=== PATIENT | female | born 1995 | race Two or more races ===

== ENCOUNTER 2020-02-08 02:08 | Emergency (ER) | payer MEDICAID, OTHER ==
[~2020-02-08] VITALS: Ht 154.9 cm; Wt 88.9 kg
[2020-02-08 04:24] LABS: Urine Amorphous Crystal FEW /hpf (None Seen); Urine Bacteria MOD /hpf (None Seen); Urine Blood Negative /uL (Negative); Urine Mucus FEW (None Seen); Urine Specific Gravity 1.012 (1.001-1.035); Urine WBC 418 /hpf (0 - 5); Urine WBC Clumps PRESENT /hpf (None Seen)
[2020-02-08 10:43] VITALS: BP 131/85
== END 2020-02-08 10:51 | disposition home or self-care (01) ==
LOC: ER 02:08
DX: O23.41 Unspecified infection of urinary tract in pregnancy, first trimester (principal); R30.0 Dysuria; Z3A.01 Less than 8 weeks gestation of pregnancy
CPT/HCPCS: 36415; 76801; 76817; 81001; 84702

== ENCOUNTER 2020-02-19 14:38 | Emergency (ER) | payer MEDICAID ==
[~2020-02-19] VITALS: Ht 154.9 cm; Wt 87.1 kg
[2020-02-19 14:45] VITALS: BP 128/85
[2020-02-19 15:28] LABS: Urine Bacteria NONE SEEN /hpf (None Seen); Urine Blood 1+ /uL (Negative); Urine Mucus FEW (None Seen); Urine Specific Gravity 1.034 (1.001-1.035); Urine WBC 1 /hpf (0 - 5)
== END 2020-02-19 16:26 | disposition home or self-care (01) ==
LOC: ER 14:38
DX: O20.0 Threatened abortion (principal); Z3A.01 Less than 8 weeks gestation of pregnancy
CPT/HCPCS: 36415; 76801; 81001; 84702

== ENCOUNTER 2020-08-30 22:37 | Observation (INO) | payer MEDICAID ==
[~2020-08-30] VITALS: Ht 0 cm
[2020-08-31] MEDS ORDERED: ACETAMINOPHEN 325 MG TAB PO ONE ×2 (00:15)
[2020-08-31 02:14] LABS: Basophils # (auto) 0.1 10 ^3/uL (0-0.2); Eosinophils # (auto) 0.1 10 ^3/uL (0-0.8); Eosinophils % (auto) 0.6 % (0.0-7.0); Mean Corpuscular Hemoglobin 25.7 pg (28.0-32.0)
[2020-08-31 02:16] LABS: Hematocrit 35.9 % (36.0-46.0); Hemoglobin 11.6 g/dL (12.2-16.2); Lymphocytes % (auto) 30.5 % (10.0-50.0); Mean Corpuscular Hgb Conc. 32.3 g/dL (32.0-36.0); Mean Corpuscular Volume 79.6 fL (80.0-100.0); Monocytes # (auto) 0.7 10 ^3/uL (0-1.3); Monocytes % (auto) 7.3 % (0.0-12.0); Neutrophils % (auto) 60.6 % (37.0-80.0); Nucleated Red Blood Cells % 0.2 %; Platelet Count (auto) 250 10^3/uL (140-450); Red Blood Cells 4.51 10^6/uL (4.0-5.20); Red Cell Distribution Width 16.6 % (11.8-14.3); White Blood Cell 9.9 10^3/uL (4.4-10.8)
[2020-08-31 02:30] LABS: INR 0.91 (0.9-1.15); Partial Thromboplastin Time 27.1 sec (23.0-31.2)
[2020-08-31 02:39] LABS: Albumin 2.4 g/dL (3.4-5.0); Calcium 8.1 mg/dL (8.5-10.1); Potassium 4.6 mmol/L (3.5-5.1)
[2020-08-31 02:42] LABS: BUN/Creatinine Ratio 16.9; Bilirubin, Total 0.2 mg/dL (0.2-1.0)
[2020-08-31 02:47] LABS: Urine Bacteria FEW /hpf (None Seen); Urine Blood Negative /uL (Negative); Urine Hyaline Cast FEW /lpf (0 - 2); Urine Mucus FEW (None Seen); Urine Specific Gravity 1.017 (1.001-1.035); Urine WBC 3 /hpf (0 - 5)
[2020-08-31] MEDS ORDERED: LEVO25CA3 PO (04:04)
[2020-08-31] MEDS ORDERED: LEVO25TA6 PO (04:05)
== END 2020-08-31 04:20 | disposition home or self-care (01) ==
LOC: UNDOADMOB 22:37 → LDRP 22:37 → UNDODISOB 08-31 04:20
PROVIDERS: ADMIT Obstetrics & Gynecology; ATTEND Obstetrics & Gynecology
DX: O48.0 Post-term pregnancy (principal); O62.9 Abnormality of forces of labor, unspecified; O99.891 Other specified diseases and conditions complicating pregnancy; R51.9 Headache, unspecified; Z3A.40 40 weeks gestation of pregnancy
CPT/HCPCS: 36415; 59025; 80053; 81001; 81002; 84550; 85025; 85362; 85379; 85610; 85730; G0378

== ENCOUNTER 2021-02-15 23:40 | Inpatient (IN) | payer MEDICAID ==
[~2021-02-15] VITALS: Ht 154.9 cm; Wt 105.9 kg
[~2021-02-15 23:40] MED LIST: LEVO25CA3 PO; LEVO25TA6 PO
[2021-02-16 00:29] LABS: Basophils # (auto) 0.1 10 ^3/uL (0-0.2); Eosinophils # (auto) 0.1 10 ^3/uL (0-0.8); Monocytes # (auto) 0.8 10 ^3/uL (0-1.3); Monocytes % (auto) 6.7 % (0.0-12.0); Neutrophils # (auto) 7.5 10 ^3/uL (1.6-8.6); Nucleated Red Blood Cells % 0.1 %; Red Blood Cells 5.28 10^6/uL (4.0-5.20); Red Cell Distribution Width 17.5 % (11.8-14.3)
[2021-02-16 00:31] LABS: Eosinophils % (auto) 0.9 % (0.0-7.0); Hematocrit 38.7 % (36.0-46.0); Lymphocytes # (auto) 2.9 10 ^3/uL (0.4-5.4); Lymphocytes % (auto) 25.6 % (10.0-50.0); Mean Corpuscular Hemoglobin 24.6 pg (28.0-32.0); Mean Corpuscular Hgb Conc. 33.6 g/dL (32.0-36.0); Mean Corpuscular Volume 73.3 fL (80.0-100.0); Neutrophils % (auto) 65.8 % (37.0-80.0); White Blood Cell 11.4 10^3/uL (4.4-10.8)
[2021-02-16 00:47] LABS: Albumin 3.7 g/dL (3.4-5.0); Potassium 3.9 mmol/L (3.5-5.1)
[2021-02-16 00:49] LABS: BUN/Creatinine Ratio 16.2
[2021-02-16 00:51] LABS: Bilirubin, Total 0.2 mg/dL (0.2-1.0); Total Protein 8.2 g/dL (6.4-8.2)
[2021-02-16] MEDS ORDERED: MORPHINE SULFATE 4 MG/ML SYR/VIAL IV ONE (02:30)
[2021-02-16] MEDS ORDERED: SODIUM CHLORIDE 0.9% 1,000 ML IV ONE (02:30)
[2021-02-16] MEDS ORDERED: ONDANSETRON HCL 4 MG/2 ML VIAL IM ONE (02:30)
[2021-02-16] MEDS ORDERED: IOHEXOL 300 MG/ML 100ML BOTTLE IJ ONE (02:31)
[2021-02-16] MEDS ORDERED: KETOROLAC TROMETH 30 MG/ML 1ML VIAL IV ONE (06:00)
[2021-02-16 08:34] LABS: Urine Bacteria FEW /hpf (None Seen); Urine Blood Negative /uL (Negative); Urine Mucus FEW (None Seen); Urine WBC 1 /hpf (0 - 5)
[2021-02-16 08:38] LABS: Urine Specific Gravity > 1.050 (1.001-1.035)
[2021-02-16] MEDS ORDERED: HYDROcodone-ACET 5/325MG TAB PO PRN (12:15)
[2021-02-16] MEDS ORDERED: MORPHINE SULF INJ 2 MG/ML SYRINGE 1ML IV PRN ×2 (12:15)
[2021-02-16] MEDS ORDERED: ONDANSETRON HCL 4 MG/2 ML VIAL IV PRN (12:15)
[2021-02-16] MEDS ORDERED: NITROGLYCERIN 0.4 MG SL TAB SL PRN (12:15)
[2021-02-16] MEDS ORDERED: ACETAMINOPHEN 325 MG TAB PO PRN (12:15)
[2021-02-16] MEDS: SODIUM CHLORIDE 0.9% 1,000 ML IV SCH ×2 (12:30→19:50)
[2021-02-16] MEDS ORDERED: ALBUAER3 IN (16:06)
[2021-02-16 16:44] VITALS: BP 117/70
[2021-02-16 22:00] VITALS: BP 123/69
[2021-02-17] MEDS: SODIUM CHLORIDE 0.9% 1,000 ML IV SCH ×2 (03:55→12:15)
[2021-02-17 05:00] VITALS: BP 121/66
[2021-02-17 09:00] VITALS: BP 134/69
[2021-02-17 12:34] VITALS: BP 103/67
[2021-02-17 14:33] VITALS: BP 103/67
== END 2021-02-17 15:10 | disposition home or self-care (01) | DRG 251 ==
LOC: ER 23:40 → OVERFLOW 02-16 12:13 → WEST WING 02-16 16:05
PROVIDERS: ADMIT Internal Medicine; ATTEND Internal Medicine
DX: R10.9 Unspecified abdominal pain (principal); E66.01 Morbid (severe) obesity due to excess calories; E78.1 Pure hyperglyceridemia; N83.202 Unspecified ovarian cyst, left side; E03.9 Hypothyroidism, unspecified; J45.909 Unspecified asthma, uncomplicated; Z20.822 Contact with and (suspected) exposure to COVID-19; Z68.41 Body mass index [BMI] 40.0-44.9, adult; Z90.49 Acquired absence of other specified parts of digestive tract
CPT/HCPCS: 36415; 74177; 80053; 81001; 81025; 83605; 83690; 84478; 85025; 86677; 87426; 96361; 96372; 96374; 96375; G0378; J1885; J2405

== ENCOUNTER 2021-05-28 15:55 | Emergency (ER) | payer MEDICAID ==
[~2021-05-28] VITALS: Ht 154.9 cm; Wt 108.9 kg
[~2021-05-28 15:55] MED LIST changes: +ALBUAER3 IN; -LEVO25CA3 PO
[2021-05-28 17:33] LABS: Protein, Urine 8.8 mg/dL (0.0-11.9)
[2021-05-28 17:54] LABS: Basophils # (auto) 0.1 10 ^3/uL (0-0.2); Eosinophils # (auto) 0.1 10 ^3/uL (0-0.8); Mean Corpuscular Volume 76.2 fL (80.0-100.0); Monocytes # (auto) 0.7 10 ^3/uL (0-1.3); Neutrophils # (auto) 5.5 10 ^3/uL (1.6-8.6); Nucleated Red Blood Cells % 0.1 %
[2021-05-28 17:55] LABS: Basophils % (auto) 0.9 % (0.0-2.0); Eosinophils % (auto) 0.8 % (0.0-7.0); Hematocrit 41.3 % (36.0-46.0); Hemoglobin 13.3 g/dL (12.2-16.2); Lymphocytes # (auto) 1.7 10 ^3/uL (0.4-5.4); Mean Corpuscular Hemoglobin 24.6 pg (28.0-32.0); Mean Corpuscular Hgb Conc. 32.3 g/dL (32.0-36.0); Monocytes % (auto) 8.7 % (0.0-12.0); Neutrophils % (auto) 68.6 % (37.0-80.0); Red Blood Cells 5.42 10^6/uL (4.0-5.20); Red Cell Distribution Width 16.9 % (11.8-14.3)
[2021-05-28 18:14] LABS: Albumin 3.2 g/dL (3.4-5.0); Calcium 8.6 mg/dL (8.5-10.1); Magnesium 2.9 mg/dL (1.6-2.6); Potassium 4.2 mmol/L (3.5-5.1)
[2021-05-28 18:17] LABS: BUN/Creatinine Ratio 10.3; Bilirubin, Total 0.1 mg/dL (0.2-1.0); Total Protein 7.5 g/dL (6.4-8.2)
[2021-05-28 18:20] LABS: INR 0.99 (0.9-1.15); Partial Thromboplastin Time 27.7 sec (23.6-33.0)
[2021-05-28] MEDS ORDERED: ACETAMINOPHEN 325 MG TAB PO ONE (18:45)
[2021-05-28] MEDS ORDERED: SODIUM CHLORIDE 0.9% 1,000 ML IV ONE (18:45)
[2021-05-29 01:09] LABS: Urine Bacteria FEW /hpf (None Seen); Urine Blood Negative /uL (Negative); Urine Mucus FEW (None Seen); Urine Specific Gravity 1.029 (1.001-1.035); Urine WBC 3 /hpf (0 - 5)
[2021-05-29 01:30] VITALS: BP 137/88
== END 2021-05-29 01:47 | disposition home or self-care (01) ==
LOC: ER 15:55
DX: O00.01 Abdominal pregnancy with intrauterine pregnancy (principal); I10 Essential (primary) hypertension; J45.909 Unspecified asthma, uncomplicated; Z3A.01 Less than 8 weeks gestation of pregnancy; Z79.899 Other long term (current) drug therapy; Z90.49 Acquired absence of other specified parts of digestive tract; Z98.890 Other specified postprocedural states
CPT/HCPCS: 36415; 76801; 76817; 80053; 81001; 82570; 83615; 83735; 84156; 84702; 85025; 85610; 85730

== ENCOUNTER → 2021-07-03 | Outpatient (CLI) | payer MEDICAID ==
[2021-07-03] VITALS (7 sets, daily range): BP systolic 103–125; BP diastolic 47–77
[~2021-07-03] VITALS: Ht 154.9 cm; Wt 105.2 kg
[~2021-07-03] MED LIST changes: +LIDOCAINE 1% HCL (LOCAL ANESTH.) INJ 20ML MDV ONE; +REGENERON 1200mg/250ml NS 250 ML IV ONE
== END | disposition home or self-care (01) ==
LOC: ER 12:11
PROVIDERS: ATTEND Internal Medicine
DX: O98.511 Other viral diseases complicating pregnancy, first trimester (principal); U07.1 COVID-19; Z3A.12 12 weeks gestation of pregnancy
CPT/HCPCS: J7050; M0243; Q0244; J2001

== ENCOUNTER 2021-07-29 18:19 | Emergency (ER) | payer MEDICAID ==
[~2021-07-29] VITALS: Ht 154.9 cm; Wt 103.4 kg
[~2021-07-29 18:19] MED LIST changes: -LIDOCAINE 1% HCL (LOCAL ANESTH.) INJ 20ML MDV ONE; -REGENERON 1200mg/250ml NS 250 ML IV ONE
[2021-07-29 18:24] VITALS: BP 132/94
[2021-07-29 19:02] LABS: Urine Bacteria FEW /hpf (None Seen); Urine Blood Negative /uL (Negative); Urine Mucus FEW (None Seen); Urine Specific Gravity 1.021 (1.001-1.035); Urine WBC 17 /hpf (0 - 5)
== END 2021-07-30 06:56 | disposition left against medical advice (07) ==
LOC: ER 18:19
DX: O26.892 Other specified pregnancy related conditions, second trimester (principal); R42 Dizziness and giddiness; Z53.21 Procedure and treatment not carried out due to patient leaving prior to being seen by health care provider; Z3A.16 16 weeks gestation of pregnancy
CPT/HCPCS: 81001; 81025

== ENCOUNTER → 2024-04-07 | Outpatient (CLI) | payer MEDICAID ==
[2024-04-07 14:43] LABS: 24 Hr. Total Protein, Urine 159.5 mg/24 Hr (<149.1)
== END | disposition home or self-care (01) ==
LOC: LAB 13:58
PROVIDERS: ATTEND Obstetrics & Gynecology
DX: R82.998 Other abnormal findings in urine (principal)
CPT/HCPCS: 84156

== ENCOUNTER 2024-04-16 16:16 | Observation (INO) | payer MEDICAID ==
[2024-04-16 16:58] LABS: Basophils # (auto) 0.1 10 ^3/uL (0-0.2); Basophils % (auto) 0.9 % (0.0-2.0); Eosinophils # (auto) 0.1 10 ^3/uL (0-0.8); Eosinophils % (auto) 0.8 % (0.0-7.0); Hematocrit 33.7 % (36.0-46.0); Hemoglobin 10.7 g/dL (12.2-16.2); Lymphocytes # (auto) 1.4 10 ^3/uL (0.4-5.4); Lymphocytes % (auto) 16.2 % (10.0-50.0); Mean Corpuscular Hemoglobin 22.8 pg (28.0-32.0); Mean Corpuscular Hgb Conc. 31.7 g/dL (32.0-36.0); Mean Corpuscular Volume 71.8 fL (80.0-100.0); Monocytes # (auto) 0.7 10 ^3/uL (0-1.3); Monocytes % (auto) 7.4 % (0.0-12.0); Neutrophils # (auto) 6.6 10 ^3/uL (1.6-8.6); Neutrophils % (auto) 74.7 % (37.0-80.0); Nucleated Red Blood Cells % 0.1 %; Platelet Count (auto) 260 10^3/uL (140-450); Red Blood Cells 4.69 10^6/uL (4.0-5.20); Red Cell Distribution Width 18.5 % (11.8-14.3); White Blood Cell 8.9 10^3/uL (4.4-10.8)
[2024-04-16 17:13] LABS: Alanine Aminotransferase 11 U/L (7-40); Albumin 3.9 g/dL (3.2-4.8); Alkaline Phosphatase 157 U/L (46-116); Anion Gap 6 (5-15); Aspartate Aminotransferase 12 U/L (13-40); BUN/Creatinine Ratio 13.4 (10.0-20.0); Blood Urea Nitrogen 9 mg/dL (9-23); Calcium 9.1 mg/dL (8.7-10.4); Carbon Dioxide 23 mmol/L (20-31); Chloride 108 mmol/L (98-107); Glucose 95 mg/dL (74-106); Sodium 137 mmol/L (136-145); Uric Acid 5.7 mg/dL (3.1-7.8)
[2024-04-16 17:14] LABS: Bilirubin, Total 0.4 mg/dL (0.2-1.0); Total Protein 6.9 g/dL (5.7-8.2)
[2024-04-16 17:17] LABS: INR 1.03 (0.9-1.15); Partial Thromboplastin Time 26.1 SEC (24.5-34.5); Prothrombin Time 10.9 sec (9.3-11.8)
[2024-04-16 17:27] LABS: Urine Bacteria FEW /hpf (None Seen); Urine Blood Negative /uL (Negative); Urine Clarity Turbid (Clear); Urine Color Yellow (Yellow); Urine Mucus FEW (None Seen); Urine Protein, UAD TRACE (Negative); Urine Specific Gravity 1.014 (1.001-1.035); Urine Urobilinogen Normal (Negative); Urine WBC 4 /hpf (0 - 5)
[2024-04-16 17:38] LABS: Protein, Urine 33.3 mg/dL (1-14)
[2024-04-16 17:39] LABS: Amphetamine Screen, Urine Neg (NEGATIVE); Barbiturate Scree,Urine Neg (NEGATIVE); Benzodiazephine Screen, Urine Neg (NEGATIVE); Cocaine Screen, Urine Neg (NEGATIVE); Opiate Scree,Urine Neg (NEGATIVE)
[2024-04-16 17:40] LABS: Cannabinoid Screen, Urine Neg (NEGATIVE); Creatinine, Urine 116.16 mg/dL (30.0-125.0); Phencyclidine Screen, Urine Neg (NEGATIVE); Urine Protein/Creatinine Ratio 0.29
[2024-04-16] MEDS ORDERED: ASPI1TAB20 PO (18:22)
[2024-04-16] MEDS ORDERED: PREN1TAB71 OR (18:22)
== END 2024-04-16 20:03 | disposition home or self-care (01) ==
LOC: LDRP 16:16
PROVIDERS: ADMIT Obstetrics & Gynecology; ATTEND Obstetrics & Gynecology
DX: O13.3 Gestational [pregnancy-induced] hypertension without significant proteinuria, third trimester (principal); O60.03 Preterm labor without delivery, third trimester; O99.333 Smoking (tobacco) complicating pregnancy, third trimester; F17.210 Nicotine dependence, cigarettes, uncomplicated; Z3A.31 31 weeks gestation of pregnancy; Z79.899 Other long term (current) drug therapy
CPT/HCPCS: 36415; 59025; 76805; 80053; 80307; 81001; 81002; 82570; 84156; 84550; 85025; 85610; 85730; 94760; G0378

== ENCOUNTER 2024-04-20 13:58 | Observation (INO) | payer MEDICAID ==
[~2024-04-20 13:58] MED LIST changes: +ASPI1TAB20 PO; +PREN1TAB71 OR
== END 2024-04-20 17:31 | disposition home or self-care (01) ==
LOC: LDRP 13:58
PROVIDERS: ADMIT Obstetrics & Gynecology; ATTEND Obstetrics & Gynecology
DX: O13.3 Gestational [pregnancy-induced] hypertension without significant proteinuria, third trimester (principal); Z3A.33 33 weeks gestation of pregnancy; Z79.899 Other long term (current) drug therapy
CPT/HCPCS: 59025; 76818; 81002; G0378

== ENCOUNTER 2024-04-27 06:53 | Observation (INO) | payer MEDICAID ==
[2024-04-27 16:00] LABS: Urine Bacteria None Seen /hpf (None Seen)
[2024-04-27 16:12] LABS: INR 1.01 (0.9-1.15); Partial Thromboplastin Time 25.8 SEC (24.5-34.5); Prothrombin Time 10.7 sec (9.3-11.8)
[2024-04-27 16:18] LABS: Alanine Aminotransferase 10 U/L (7-40); Albumin 3.7 g/dL (3.2-4.8); Alkaline Phosphatase 146 U/L (46-116); Anion Gap 11 (5-15); Aspartate Aminotransferase 11 U/L (13-40); BUN/Creatinine Ratio 12.7 (10.0-20.0); Bilirubin, Total 0.4 mg/dL (0.2-1.0); Blood Urea Nitrogen 7 mg/dL (9-23); Calcium 8.6 mg/dL (8.7-10.4); Carbon Dioxide 20 mmol/L (20-31); Chloride 105 mmol/L (98-107); Glucose 103 mg/dL (74-106); Potassium 3.9 mmol/L (3.5-5.1); Sodium 136 mmol/L (136-145); Total Protein 6.5 g/dL (5.7-8.2); Uric Acid 5.2 mg/dL (3.1-7.8)
[2024-04-27 16:20] LABS: Urine Blood Negative /uL (Negative); Urine Color Yellow (Yellow); Urine Mucus FEW (None Seen); Urine Protein, UAD 1+ (Negative); Urine Specific Gravity 1.022 (1.001-1.035); Urine Urobilinogen 2 mg/dL (Negative); Urine WBC 1 /hpf (0 - 5); Urine pH 7.5 (5.0-9.0)
[2024-04-27 16:24] LABS: Protein, Urine 66.2 mg/dL (1-14); Urine Clarity HAZY (Clear)
[2024-04-27 16:35] LABS: Creatinine, Urine 271.42 mg/dL (30.0-125.0); Urine Protein/Creatinine Ratio 0.24
[2024-04-27 17:19] LABS: Basophils # (auto) 0 10 ^3/uL (0-0.2); Basophils % (auto) 0.3 % (0.0-2.0); Eosinophils # (auto) 0 10 ^3/uL (0-0.8); Eosinophils % (auto) 0.4 % (0.0-7.0); Hemoglobin 10.1 g/dL (12.2-16.2); Lymphocytes # (auto) 1.3 10 ^3/uL (0.4-5.4); Monocytes # (auto) 0.6 10 ^3/uL (0-1.3); Neutrophils # (auto) 5.5 10 ^3/uL (1.6-8.6); White Blood Cell 7.4 10^3/uL (4.4-10.8)
[2024-04-27 17:21] LABS: Hematocrit 32.3 % (36.0-46.0); Lymphocytes % (auto) 17.5 % (10.0-50.0); Mean Corpuscular Hemoglobin 22.3 pg (28.0-32.0); Mean Corpuscular Hgb Conc. 31.4 g/dL (32.0-36.0); Monocytes % (auto) 7.9 % (0.0-12.0); Neutrophils % (auto) 73.9 % (37.0-80.0); Platelet Count (auto) 227 10^3/uL (140-450); Red Blood Cells 4.54 10^6/uL (4.0-5.20); Red Cell Distribution Width 19.3 % (11.8-14.3)
== END 2024-04-27 17:21 | disposition home or self-care (01) ==
LOC: LDRP 14:21
PROVIDERS: ADMIT Obstetrics & Gynecology; ATTEND Obstetrics & Gynecology
DX: O26.893 Other specified pregnancy related conditions, third trimester (principal); R51.9 Headache, unspecified; H53.8 Other visual disturbances; Z3A.32 32 weeks gestation of pregnancy; Z79.899 Other long term (current) drug therapy; Z98.890 Other specified postprocedural states
CPT/HCPCS: 36415; 59025; 76818; 80053; 81001; 81002; 82570; 84156; 84550; 85025; 85610; 85730; 94760; G0378

== ENCOUNTER 2024-05-04 12:53 | Observation (INO) | payer MEDICAID | END 2024-05-04 14:48 | disposition home or self-care (01) | LOC: LDRP 12:53 → UNDOADMOB 12:53 → LDRP 13:05 | PROVIDERS: ADMIT Obstetrics & Gynecology; ATTEND Obstetrics & Gynecology | DX: O26.893 Other specified pregnancy related conditions, third trimester (principal); R51.9 Headache, unspecified; R11.0 Nausea; O14.93 Unspecified pre-eclampsia, third trimester; O99.333 Smoking (tobacco) complicating pregnancy, third trimester; F17.210 Nicotine dependence, cigarettes, uncomplicated; Z3A.34 34 weeks gestation of pregnancy | CPT/HCPCS: 59025; 76818; 81002; 94760; G0378 ==

== ENCOUNTER → 2024-05-04 | Outpatient (CLI) | payer MEDICAID ==
[2024-05-04 15:33] LABS: Protein, Urine 20.8 mg/dL (1-14)
[2024-05-04 15:37] LABS: 24 Hr. Total Protein, Urine 187.2 mg/24 Hr (<149.1)
== END | disposition home or self-care (01) ==
LOC: LAB 12:49
PROVIDERS: ATTEND Obstetrics & Gynecology
DX: Z34.80 Encounter for supervision of other normal pregnancy, unspecified trimester (principal)
CPT/HCPCS: 84156

== ENCOUNTER 2024-05-11 07:25 | Observation (INO) | payer MEDICAID | END 2024-05-11 13:28 | disposition home or self-care (01) | LOC: UNDOADMOB 12:05 → LDRP 12:05 | PROVIDERS: ADMIT Obstetrics & Gynecology; ATTEND Obstetrics & Gynecology | DX: O14.93 Unspecified pre-eclampsia, third trimester (principal); O99.513 Diseases of the respiratory system complicating pregnancy, third trimester; J45.909 Unspecified asthma, uncomplicated; E03.9 Hypothyroidism, unspecified; Z3A.35 35 weeks gestation of pregnancy; Z79.899 Other long term (current) drug therapy; Z98.890 Other specified postprocedural states | CPT/HCPCS: 59025; 76818; 81002; 94760; G0378 ==

== ENCOUNTER → 2024-05-12 | Outpatient (CLI) | payer MEDICAID ==
[2024-05-12 12:06] LABS: Basophils # (auto) 0.1 10 ^3/uL (0-0.2); Eosinophils # (auto) 0.1 10 ^3/uL (0-0.8); Hematocrit 32.4 % (36.0-46.0); Lymphocytes # (auto) 1.6 10 ^3/uL (0.4-5.4); Neutrophils # (auto) 5.3 10 ^3/uL (1.6-8.6)
[2024-05-12 12:08] LABS: Basophils % (auto) 1.1 % (0.0-2.0); Eosinophils % (auto) 0.9 % (0.0-7.0); Hemoglobin 10.5 g/dL (12.2-16.2); Lymphocytes % (auto) 20.9 % (10.0-50.0); Mean Corpuscular Hemoglobin 22.4 pg (28.0-32.0); Mean Corpuscular Hgb Conc. 32.3 g/dL (32.0-36.0); Mean Corpuscular Volume 69.3 fL (80.0-100.0); Monocytes # (auto) 0.5 10 ^3/uL (0-1.3); Neutrophils % (auto) 70.1 % (37.0-80.0); Nucleated Red Blood Cells % 0.1 %; Platelet Count (auto) 228 10^3/uL (140-450); Red Blood Cells 4.68 10^6/uL (4.0-5.20); Red Cell Distribution Width 19.2 % (11.8-14.3); White Blood Cell 7.5 10^3/uL (4.4-10.8)
[2024-05-12 13:30] LABS: Ovalocytes FEW; Platelet Estimate Adequate; Tear Drop Cells FEW
[2024-05-12 13:31] LABS: Hypochromia Moderate
== END | disposition home or self-care (01) ==
LOC: LAB 11:42
PROVIDERS: ATTEND Obstetrics & Gynecology
DX: Z34.80 Encounter for supervision of other normal pregnancy, unspecified trimester (principal)
CPT/HCPCS: 36415; 82947; 83036; 84439; 84443; 85025

== ENCOUNTER 2024-05-18 04:38 | Observation (INO) | payer MEDICAID ==
[~2024-05-18] VITALS: Ht 162.6 cm; Wt 113.4 kg
[2024-05-20] MEDS: TERBUTALINE SULFATE 1 MG/ML 1ML VIAL SC SCH (16:49)
== END 2024-05-20 17:53 | disposition home or self-care (01) ==
LOC: LDRP 05-20 15:20 → UNDOADMOB 05-20 15:20 → LDRP 05-20 15:36 → UNDODISOB 05-20 17:53
PROVIDERS: ADMIT Obstetrics & Gynecology; ATTEND Obstetrics & Gynecology
DX: O60.03 Preterm labor without delivery, third trimester (principal); O26.853 Spotting complicating pregnancy, third trimester; Z3A.36 36 weeks gestation of pregnancy; Z98.891 History of uterine scar from previous surgery; Z79.899 Other long term (current) drug therapy
CPT/HCPCS: 59025; 76815; 76817; 81002; 94760; 96372; G0378; J3105

== ENCOUNTER 2024-05-22 05:33 | Inpatient (IN) | payer MEDICAID ==
[2024-05-22] VITALS (20 sets, daily range): BP systolic 102–132; BP diastolic 51–79; PULSE 67–90; RESP 16–20; TEMP 98.2–98.5; O2SAT 95–100
[~2024-05-22] VITALS: Ht 154.9 cm; Wt 112.5 kg
[2024-05-22] MEDS: LACTATED RINGER'S 1,000 ML IV ONE (06:00)
[2024-05-22] MEDS ORDERED: LACTATED RINGER'S 1,000 ML IV SCH (06:00)
[2024-05-22] MEDS: METOCLOPRAMIDE HCL 5MG/ml INJ 2ml VIAL IV ONE (06:00)
[2024-05-22 06:29] LABS: Eosinophils # (auto) 0 10 ^3/uL (0-0.8); Eosinophils % (auto) 0.4 % (0.0-7.0); Mean Corpuscular Hgb Conc. 30.8 g/dL (32.0-36.0); Neutrophils # (auto) 5.2 10 ^3/uL (1.6-8.6); White Blood Cell 7.9 10^3/uL (4.4-10.8)
[2024-05-22 06:31] LABS: Basophils # (auto) 0 10 ^3/uL (0-0.2); Basophils % (auto) 0.4 % (0.0-2.0); Hematocrit 32.7 % (36.0-46.0); Hemoglobin 10.1 g/dL (12.2-16.2); Lymphocytes # (auto) 2.2 10 ^3/uL (0.4-5.4); Lymphocytes % (auto) 27.1 % (10.0-50.0); Mean Corpuscular Hemoglobin 21.3 pg (28.0-32.0); Mean Corpuscular Volume 69.2 fL (80.0-100.0); Monocytes # (auto) 0.5 10 ^3/uL (0-1.3); Monocytes % (auto) 6.3 % (0.0-12.0); Neutrophils % (auto) 65.8 % (37.0-80.0); Nucleated Red Blood Cells % 0.2 %; Platelet Count (auto) 239 10^3/uL (140-450); Red Blood Cells 4.72 10^6/uL (4.0-5.20); Red Cell Distribution Width 20.3 % (11.8-14.3)
[2024-05-22] MEDS: SODIUM CITR/CITRIC ACID ORAL SOLN 30 ML PO ONE (06:33)
[2024-05-22] MEDS: ceFAZolin 2 GM/D5W50ml 50 ML IV ONE (06:34)
[2024-05-22 06:35] LABS: Urine Bacteria FEW /hpf (None Seen); Urine Blood 2+ /uL (Negative); Urine Clarity Turbid (Clear); Urine Color Colorless (Yellow); Urine Mucus FEW (None Seen); Urine Protein, UAD 1+ (Negative); Urine Specific Gravity 1.015 (1.001-1.035); Urine Urobilinogen Normal (Negative); Urine WBC 19 /hpf (0 - 5)
[2024-05-22 06:44] LABS: Amphetamine Screen, Urine Neg (NEGATIVE); Barbiturate Scree,Urine Neg (NEGATIVE); Benzodiazephine Screen, Urine Neg (NEGATIVE)
[2024-05-22 06:45] LABS: INR 0.99 (0.9-1.15); Partial Thromboplastin Time 25.4 SEC (24.5-34.5); Prothrombin Time 10.5 sec (9.3-11.8)
[2024-05-22 06:45] LABS: Cannabinoid Screen, Urine Neg (NEGATIVE); Cocaine Screen, Urine Neg (NEGATIVE); Opiate Scree,Urine Neg (NEGATIVE); Phencyclidine Screen, Urine Neg (NEGATIVE)
[2024-05-22 06:47] LABS: Alanine Aminotransferase < 9 U/L (7-40); Albumin 3.6 g/dL (3.2-4.8); Alkaline Phosphatase 157 U/L (46-116); Anion Gap 10 (5-15); Aspartate Aminotransferase 12 U/L (13-40); BUN/Creatinine Ratio 16.4 (10.0-20.0); Bilirubin, Total 0.4 mg/dL (0.2-1.0); Blood Urea Nitrogen 10 mg/dL (9-23); Calcium 8.7 mg/dL (8.7-10.4); Carbon Dioxide 19 mmol/L (20-31); Chloride 108 mmol/L (98-107); Glucose 91 mg/dL (74-106); Sodium 137 mmol/L (136-145); Total Protein 6.5 g/dL (5.7-8.2)
[2024-05-22 06:52] LABS: Anisocytosis Slight; Platelet Estimate Adequate
--- NOTE | 2024-05-22 06:52 | DVHHP2 ---
OB CC & HPI Date Date of Admission: May 22, 2024 Patient Identification: : 4 Para: 3 EDC: Jun 14, 2024 EGA: 36wks Chief Complaints: Reason for admission: active labor, rupture of membranes Indication for : desires repeat Admission Nurse Assessment Rev: No History of Present Complaints pt is admitted in labor with prom ,no vag bleeding and she is requesting rcs with btl Past Medical History Cardiac: No pertinent Hx Pulmonary: No pertinent Hx Central Nervous System: No pertinent Hx GI: No pertinent Hx Hemotology/Oncology: No pertinent Hx Hepatobiliary: No pertinent Hx Psychiatric: No pertinent Hx Musculoskeletal: No pertinent Hx Rheumotologic: No pertinent Hx Infectious Disease: No peritnent Hx ENT: No pertinent Hx Renal/: No pertinent Hx Endocrine: No pertinent Hx Dermatology: No pertinent Hx Past Surgical History: OB History OB History Care: Good Care Ultrasounds: Normal mid trimester US Obstetrical Complications: None Medical Complications: None Allergies: Coded Allergies: NO KNOWN ALLERGIES (Unverified , 02/08/20) Home Meds Reported Medications Aspirin (Aspir-81) 81 Mg Tab, 1 TAB PO DAILY, #30 TAB 5 Refills 04/16/24 Vit W/ Ferrous Fumara (PNV PLUS MULTIVI) Plus Tab, 1 OR, TAB 04/16/24 Albuterol Sulfate (VENTOLIN MDI) 90 Mcg Ih, 90 MCG IN 2 PUFFS PO Q4HR PRN SOB 02/16/21 Levothyroxine Sodium (Levothyroxine Sodium) 25 Mcg Tab, 25 MCG PO QAM, MCG 08/31/20 Current Medications Current Medications Medications (Trade) Dose Ordered Sig/Romain Route PRN Reason Start Time Stop Time Status Last Admin Lactated Ringer's 1,000 ml @ 125 mls/hr Q8H IV 05/22/24 06:00 Family & Social History Family/Social History Blood Type: Unknown Rubella: unknown RPR/VDRL: Negative GBS Status: Negative HBsAG: Negative Review of Systems Constitutional: No symptom reported Ears, Nose, & Throat: No symptom reported Eyes: No symptom reported Pulmonary/Respiratory: No symptom reported Cardiovascular: No symptom reported Gastrointestinal: No symptom reported Genitourinary: No symptom reported Musculoskeletal: No symptom reported Skin: No symptom reported Psychiatric: No symptom reported Endocrine: No symptom reported Hemotologic/Lymphatic: No symptom reported OB Admission Exam Physical Exam HEENT: TMs Normal, Fontanelles Normal, Nasal Mucosa Normal, Eyes non-injected, Oropharynx Normal, PERRLA, Moist Membranes, EOMI Heart: Rhythm Normal Lungs: Clear Abdomen: Non tender Extremities: Normal Reflexes: Normal Cervical Dilatation: 2cm Effacement: 50% Station: -3 Membranes: Ruptured Amniotic Fluid: Clear Heart Rate: 130's Accelerations: Accelerations Present Decelerations: No Decelerations Short Term Variability: Present Residential Variability: Average (6-25) Contractions on Admission: < 5 Minutes Apart Intensity: Moderate OB Plan Plan Admitting Diagnosis: Repeat Section with Bilateral Tubal Ligation iup at 36wks with prom morbid obesity Plan: Section Other Plan: informed consent obtained,rcs with btl via filschie clips was informed to pt.risks and complication of cs d/w pt.failure rate with btl d/w pt.risk of dvt,pe,infxn,blood loss,bleeding and risk of anesth d/w pt.all questions answered pt lanette understands wishes to proceed with procedure FOX ROCHA DO May 22, 2024 06:52
[2024-05-22] MEDS ORDERED: MORPHINE SULF PF 5 MG/10 ML VIAL ONE (07:43)
[2024-05-22] MEDS ORDERED: fentaNYL CITRATE 100 MCG/2 ML VL ONE (07:43)
[2024-05-22] MEDS ORDERED: ePHEDrine SULFATE 50 MG/ML AMP ONE (07:44)
[2024-05-22] MEDS ORDERED: GLYCOPYRROLATE 0.2 MG/ML 1ML VIAL ONE (07:44)
[2024-05-22] MEDS ORDERED: PHENYLEPHRINE HCL 10 MG/ML VL ONE (07:44)
[2024-05-22] MEDS ORDERED: oxyTOCIN 10 UNIT/ML 10ML VIAL ONE (07:44)
[2024-05-22] MEDS ORDERED: ONDANSETRON HCL 4 MG/2 ML VIAL ONE (07:44)
--- NOTE | 2024-05-22 08:59 | DVHOP2 ---
Operative Report DATE OF OPERATION: 05/22/24 PREOPERATIVE DIAGNOSES: 1. pre- Term , desires repeat section. 2. Desires bilateral tubal ligation 3.morbid obesity POSTOPERATIVE DIAGNOSES: 1. pre Term , desires repeat section. 2. Desires bilateral tubal ligation 3.morbid obesity PROCEDURES: Repeat section with bilateral tubal ligation via Filschie Clips SURGEON: Fox Connell D.O./caitlyn ANESTHESIOLOGIST: Dr. eason TYPE OF ANESTHESIA : spinal ESTIMATED BLOOD LOSS: 800 mL CONSENT: The patient was informed of the risks and benefits of the procedure. These include but are not limited to , complications of anesthesia, po stoperative infection, incomplete relief of symptoms, recurrence of symptoms, damage to blood vessels, nerves and tendons, deep venous thrombosis, pulmonary embolism and possible need for repeat surgery in the future. Surgery was opted. FINDINGS: Baby [b] with apgars [8] and [9]. Grossly normal appearing tubes and ovaries. TISSUE TO PATHOLOGY: Placenta. PROCEDURE IN DETAIL: The patient was taken to the operating room where she was placed under spinal anesthesia. She was then prepped and draped in the usual sterile manner in supine position with a leftward tilt. A Pfannenstiel skin incision was then made 2 cm above the symphysis pubis. This incision was carried to the underlying layer of fascia. The fascia was nicked in the midline and the incision was extended laterally. The superior aspect of the fascial incision was grasped and elevated. Underlying rectus muscle was dissected off bluntly. The same procedure was done to the inferior aspect of the fascial incision. The rectus muscles were then in the midline. Peritoneum was identified and entered. Peritoneal incision was extended superiorly and inferiorly with good visualization of the bladder. Bladder blade was inserted. Vesicouterine peritoneum was identified and entered. Lower uterine segment was incised in a transverse fashion. The infant was delivered from vertex presentation. The infant was baby [b] with Apgars of [8] and [9]. Placenta was then removed manually. Uterus was exteriorized and cleared off all clots and debris. Uterine incision was repaired using 0 Vicryl in a double-layered fashion. No bleeding was noted. Bilateral tubal ligation was then performed using [place]. Placed in the ampullary region and identifying the fimbria distally. The isthmic portion of the right tube was clipped using Filschie Clip. The same procedure was done on the opposite side. No bleeding was noted. Peritoneum was closed using 0 Vicryl, fascia was closed using 0 Maxon, and skin was closed using mehdi. Estimated blood loss was noted to be 500 mL. The patient tolerated the procedure well. She was taken to the recovery room in stable condition. FOX CONNELL DO May 22, 2024 08:59
--- NOTE | 2024-05-22 09:01 | POSTOP ---
Post-Operative Note Post-Operative Note Preop Diagnosis iup at 36wks with prom in labor,desire srcs with btl morbid obesity Postop Diagnosis: same Operation performed same Specimen baby b0y, 8-9 Anesthesia: Regional Anesthesiologist: yumi Blood Loss(fluid mgmt) 800ml Surgeon Fox Connell Pocket Operator caitlyn Implant filschie Complications & Mgmt none Date 05/22/24 Time 08:59 FOX CONNELL DO May 22, 2024 09:01
[2024-05-22] MEDS ORDERED: HYDR-4072 PO (09:04)
[2024-05-22] MEDS ORDERED: IBUP-1456 PO (09:04)
[2024-05-22] MEDS ORDERED: DOCU-94 PO (09:04)
[2024-05-22] MEDS ORDERED: MEPERIDINE HCL (25 MG/ML) 1ML VIAL ONE (09:14)
[2024-05-22] MEDS ORDERED: ONDANSETRON HCL 4 MG/2 ML VIAL IV PRN (09:15)
[2024-05-22] MEDS: GUM (CHEWING) 1 GUM CHEW CHEW ONE (09:15)
[2024-05-22] MEDS: LACT. RINGERS/OXYTOCIN 20UNITS 1,000 ML IV ONE (09:27)
[2024-05-22] MEDS ORDERED: DexAMETHasone SOD PHOS 10MG/1ML VIAL INJ IV PRN (09:45)
[2024-05-22] MEDS ORDERED: NALOXONE HCL 0.4 MG/ML VIAL IV PRN (09:45)
[2024-05-22] MEDS ORDERED: ePHEDrine SULFATE 50 MG/ML AMP IV PRN (09:45)
[2024-05-22] MEDS: ACETAMINOPHEN IV 1000 MG/100ML (10MG/ML) IV PRN (12:15)
[2024-05-22] MEDS: HYDROmorphone HCL 2 MG/ML VL/or syr IV ONE (13:53)
[2024-05-22] MEDS ORDERED: ceFAZolin 1GM/50ML 50 ML IV SCH (14:30)
[2024-05-22] MEDS: diphenhdrAMINE HCL 50 MG/1 ML VL IV PRN (15:48)
[2024-05-22] MEDS: ceFAZolin 1GM/50ML 50 ML IV SCH (16:02)
[2024-05-22 21:14] LABS: Basophils # (auto) 0 10 ^3/uL (0-0.2); Eosinophils # (auto) 0 10 ^3/uL (0-0.8); Monocytes # (auto) 0.7 10 ^3/uL (0-1.3); Neutrophils # (auto) 6.7 10 ^3/uL (1.6-8.6); Nucleated Red Blood Cells % 0.1 %; Red Cell Distribution Width 19.4 % (11.8-14.3)
[2024-05-22 21:16] LABS: Basophils % (auto) 0.3 % (0.0-2.0); Eosinophils % (auto) 0.5 % (0.0-7.0); Hematocrit 26.6 % (36.0-46.0); Hemoglobin 8.7 g/dL (12.2-16.2); Lymphocytes # (auto) 1.9 10 ^3/uL (0.4-5.4); Lymphocytes % (auto) 20.1 % (10.0-50.0); Mean Corpuscular Hemoglobin 22.5 pg (28.0-32.0); Mean Corpuscular Hgb Conc. 32.6 g/dL (32.0-36.0); Mean Corpuscular Volume 69.2 fL (80.0-100.0); Monocytes % (auto) 7.5 % (0.0-12.0); Neutrophils % (auto) 71.6 % (37.0-80.0); Platelet Count (auto) 195 10^3/uL (140-450); Red Blood Cells 3.84 10^6/uL (4.0-5.20); White Blood Cell 9.4 10^3/uL (4.4-10.8)
[2024-05-22] MEDS: FAMOTIDINE (10MG/ML) 2ML VL IV SCH (22:00)
[2024-05-23] VITALS (15 sets, daily range): BP systolic 107–139; BP diastolic 0–85; PULSE 80–109; RESP 16–17; TEMP 97.7–98.4; O2SAT 95–99
[2024-05-23 06:07] LABS: RPR Non Reactive (Non Reactive)
[2024-05-23 06:26] LABS: Eosinophils # (auto) 0.1 10 ^3/uL (0-0.8); Hemoglobin 8.3 g/dL (12.2-16.2)
[2024-05-23 06:28] LABS: Basophils # (auto) 0 10 ^3/uL (0-0.2); Basophils % (auto) 0.4 % (0.0-2.0); Eosinophils % (auto) 0.5 % (0.0-7.0); Lymphocytes # (auto) 1.1 10 ^3/uL (0.4-5.4); Lymphocytes % (auto) 10.9 % (10.0-50.0); Mean Corpuscular Hemoglobin 22.1 pg (28.0-32.0); Mean Corpuscular Volume 69.1 fL (80.0-100.0); Monocytes # (auto) 0.8 10 ^3/uL (0-1.3); Monocytes % (auto) 7.8 % (0.0-12.0); Neutrophils % (auto) 80.4 % (37.0-80.0); Nucleated Red Blood Cells % 0.1 %; Platelet Count (auto) 185 10^3/uL (140-450); Red Blood Cells 3.77 10^6/uL (4.0-5.20); Red Cell Distribution Width 19.4 % (11.8-14.3)
[2024-05-23] MEDS: KETOROLAC TROMETH 30 MG/ML 1ML VIAL IV PRN (07:57)
[2024-05-23 08:14] LABS: Hypochromia Moderate; Platelet Estimate Adequate
--- NOTE | 2024-05-23 08:21 | DVHPN2 ---
Chief Complaints Patient reports: No new complaints Nursing reports: No new complaints Objective Vitals Vital Signs Date Time Temp Pulse Resp B/P (MAP) Pulse Ox O2 Delivery O2 Flow Rate FiO2 05/23/24 04:30 87 95 05/23/24 03:00 98.3 16 139/76 (97) 98.3 05/22/24 19:00 Room Air 05/22/24 10:11 0.0 05/22/24 09:52 100 Medications Current Medications Medications (Trade) Dose Ordered Sig/Romain Route PRN Reason Start Time Stop Time Status Last Admin Cefazolin Sodium 50 ml @ 100 mls/hr Q8H IV 05/22/24 16:00 05/23/24 08:29 05/22/24 23:58 Diphenhydramine HCl (Benadryl Injection) 25 mg Q4HP PRN IV FOR ITCHING 05/22/24 09:45 05/22/24 15:48 Famotidine (Pepcid Injection) 20 mg Q12HR IV 05/22/24 22:00 Ketorolac Tromethamine (Toradol Injection) 30 mg Q6HP PRN IV MODERATE PAIN (4-6 PAIN SCALE) 05/22/24 09:45 05/27/24 09:44 Levothyroxine Sodium (Synthroid Tablet) 50 mcg QAM@0600 PO 05/23/24 12:00 Ondansetron HCl (Zofran) 4 mg Q4HP PRN IV NAUSEA / VOMITING 05/22/24 09:15 General: Normal Neck: Normal Lungs: Normal Cardiovascular: Normal Abdominal: Soft Extremities: Normal Studies Laboratory Tests 05/23/24 05:59 05/22/24 06:08 Test 05/22/24 06:08 Range/Units Serum Glucose 91 74-106 mg/dL Ass/Plan Assessment S/P RSC WITH BTL Plan SUPPORTIVE CARE FOX ROCHA DO May 23, 2024 08:21
[2024-05-23] MEDS ORDERED: CEPH500T PO (08:22)
[2024-05-23] MEDS ORDERED: BISACODYL 10 MG RECT SUPP PR PRN (08:30)
[2024-05-23] MEDS ORDERED: HYDROcodone-ACET 5/325MG TAB PO PRN (08:30)
[2024-05-23] MEDS: IBUPROFEN 800 MG TAB PO PRN (09:09)
[2024-05-23] MEDS: CEPHALEXIN 250 MG CAP PO SCH ×2 (09:09→14:21)
[2024-05-23] MEDS: HYDROcodone-ACET 5/325MG TAB PO PRN (09:10)
[2024-05-23] MEDS: DOCUSATE CALCIUM 240 MG CAP PO SCH (09:20)
[2024-05-23] MEDS: DOCUSATE SOD 100 MG CAP PO SCH (09:21)
[2024-05-23] MEDS: SIMETHICONE 80 MG CHEWABLE TABLET PO SCH (11:44)
[2024-05-23] MEDS: LEVOTHYROXINE SODIUM 50 MCG TAB PO SCH (12:01)
[2024-05-24 03:08] VITALS: BP 113/71; PULSE 89; RESP 14; TEMP 97.8; O2SAT 96
[2024-05-24 07:03] VITALS: BP 112/70; PULSE 86; RESP 17; TEMP 97.8; O2SAT 95
--- NOTE | 2024-05-24 08:17 | DVHPN2 ---
Chief Complaints Patient reports: No new complaints Nursing reports: No new complaints Objective Vitals Vital Signs Date Time Temp Pulse Resp B/P (MAP) Pulse Ox O2 Delivery O2 Flow Rate FiO2 05/24/24 07:03 Room Air 05/24/24 07:03 97.8 86 17 112/70 (84) 95 97.8 05/22/24 10:11 0.0 05/22/24 09:52 100 Medications Current Medications Medications (Trade) Dose Ordered Sig/Romain Route PRN Reason Start Time Stop Time Status Last Admin Acetaminophen/ Hydrocodone Bitart ([place]ornton 5/325MG Tab) 1 tab Q4HPRN PRN PO FOR PAIN 1-6 05/23/24 08:30 Acetaminophen/ Hydrocodone Bitart ([place] 5/325MG Tab) 2 tab Q4HPRN PRN PO FOR PAIN 7-10 05/23/24 08:30 05/24/24 05:29 Bisacodyl (Dulcolax Suppository) 10 mg DAILYP PRN [place] FOR CONSTIPATION 05/23/24 08:30 Cephalexin (Keflex Capsule) 500 mg Q6H PO 05/24/24 09:00 Dimethicone (Mylicon Tab) 80 mg QID PO 05/23/24 12:00 05/24/24 05:30 Docusate Calcium (Surfak Capsule) 240 mg DAILY PO 05/23/24 10:00 05/23/24 09:20 Docusate Sodium (Colace Capsule) 100 mg Q12HR PO 05/23/24 10:00 05/23/24 22:11 Ibuprofen (Motrin Tablet) 800 mg Q8HP PRN PO BREAKTHROUGH PAIN 05/23/24 08:30 05/24/24 02:56 Levothyroxine Sodium (Synthroid Tablet) 50 mcg QAM@0600 PO 05/23/24 12:00 05/24/24 05:30 General: Normal Neck: Normal Lungs: Normal Cardiovascular: Normal Abdominal: Soft Extremities: Normal Studies Laboratory Tests 05/23/24 05:59 05/22/24 06:08 Test 05/22/24 06:08 Range/Units Serum Glucose 91 74-106 mg/dL Ass/Plan Assessment S/P RSC WITH BTL Plan DC HOME FU IN [facility] FOX ROCHA May 24, 2024 08:17
--- NOTE | 2024-05-24 08:18 | DVHDS2 ---
Obstetrics Discharge Summary Obstetrics Discharge Summary Date of Admission: May 22, 2024 Date of Discharge: May 24, 2024 Reason For Admission: Onset of Labor, Section (Repeat), Tubal Ligation Procedures: NST Intrapartum Procedures: (Low Cervical Transverse), Tubal Ligation Procedures: None Operative Complicat: None Discharge Diagnosis: Term -Delivered Discharge Information: Activity (Other), Diet (Routine), Medications (Name:), Instructions (Routine), Discharge to (Home), Discarge date (05-24) FOX ROCHA DO May 24, 2024 08:18
[2024-05-24] MEDS: CEPHALEXIN 250 MG CAP PO SCH (09:11)
[2024-05-24 10:44] VITALS: BP 125/76; PULSE 92; RESP 17; TEMP 97.9; O2SAT 95
== END 2024-05-24 13:33 | disposition home or self-care (01) | DRG 539 ==
LOC: LDRP 05:33 → OBSVTOIN 05:50 → LDRP 08:12
PROVIDERS: ADMIT Obstetrics & Gynecology; ATTEND Obstetrics & Gynecology
PROC: 0UL70CZ Occlusion of Bilateral Fallopian Tubes with Extraluminal Device, Open Approach (ICD-10-PCS; 2024-05-22)
PROC: 10D00Z1 Extraction of Products of Conception, Low, Open Approach (ICD-10-PCS; principal; 2024-05-22 08:03)
DX: O42.913 Preterm premature rupture of membranes, unspecified as to length of time between rupture and onset of labor, third trimester (principal); E66.01 Morbid (severe) obesity due to excess calories; O99.214 Obesity complicating childbirth; O34.211 Maternal care for low transverse scar from previous cesarean delivery; Z37.0 Single live birth; Z3A.36 36 weeks gestation of pregnancy; Z30.2 Encounter for sterilization
CPT/HCPCS: 36415; 59025; 80053; 80307; 81001; 81002; 85025; 85610; 85730; 86592; 86780; 86850; 86900; 86901; 94760; 94762; 96360; 96361; 96365; 96366; G0378; J0131; J1885; J2405; J2590